=== PATIENT | male | born 1975 | race Hispanic/Latino ===

== ENCOUNTER 2023-04-23 16:09 | Emergency (ER) | payer SELFPAY ==
[2023-04-23] MEDS ORDERED: Boostrix 0.5 ML (Tdap) VIAL (>/=7 yrs of age) ONE (16:29)
== END 2023-04-23 17:08 | disposition home or self-care (01) ==
LOC: ERS 16:09
DX: S60.932A Unspecified superficial injury of left thumb, initial encounter (principal); W45.8XXA Other foreign body or object entering through skin, initial encounter
CPT/HCPCS: 87070; 87205; 90471; 90715